=== PATIENT | male | born 1955 | race African-American/Black ===

== ENCOUNTER 2016-11-21 11:20 | Inpatient (IN) | payer OTHER ==
[2016-11-21 12:18] VITALS: BMI 21.7
--- NOTE | 2016-11-21 15:05 | HP ---
CIWA Score - CIWA Score Nausea/Vomitin Muscle Tremors: 3 Anxiety: 3 Agitation: 2 Paroxysmal Sweats: 2 Orientation: 0-Oriented Tacttile Disturbances: 2-Mild Itch/Numbness/Burn Auditory Disturbances: 2-Mild Harshness/Frighten Visual Disturbances: 2-Mild Sensitivity Headache: 2-Mild CIWA-Ar Total Score: 21 Admission ROS BHS - HPI Chief Complaint: I NEED HELP TO STOP USING XANAX AND KLONOPIN,MMTP Allergies/Adverse Reactions: Allergies Allergy/AdvReac Type Severity Reaction Status Date / Time No Known Allergies Allergy Verified 11/21/16 14:46 History of Present Illness: THIS 61 YEARS OLD MALE WITH XANAX AND KLONOPIN DEPENDENCE,WITHDRAWAL SYMPTOM, NVER BEEN IN DETOX BEFORE SEIZURE LAST 05/28 NICOTINE DEPENDENCE MMTP 85 MGS /DAY,LAST MEDICATED TODAY HEPATITIS C GERD POSITIVE PPD LONGEST SOBRIETY 9 YEARS Exam Limitations: No Limitations - Ebola screening Have you traveled outside of the country in the last 21 days: No Have you had contact with anyone from an Ebola affected area: No Have you been sick,other than usual withdrawal symptoms: No Do you have a fever: No - Review of Systems Constitutional: Loss of Appetite, Malaise, Night Sweats, Changes in sleep EENT: reports: Tearing, Nose Congestion Respiratory: reports: No Symptoms reported Cardiac: reports: No Symptoms Reported GI: reports: Nausea, Vomiting, Abdominal cramping : reports: No Symptoms Reported Musculoskeletal: reports: No Symptoms Reported Integumentary: reports: Dryness Neuro: reports: Tremors Endocrine: reports: No Symptoms Reported Hematology: reports: No Symptoms Reported Psychiatric: reports: No Sypmtoms Reported (INSOMNIA) Patient History - Patient Medical History Hx Asthma: No Hx Chronic Obstructive Pulmonary Disease (COPD): Yes (NO MED) Hx Cancer: No Hx Cardiac Disorders: No Hx Congestive Heart Failure: No Hx Hypertension: No Hx Seizures: Yes (seizure 5 months ago) Hx Diabetes: No Hx Gastrointestinal Disorders: Yes (GERD) Hx Genitourinary Disorders: No Hx Sexually Transmitted Disorders: No Hx Renal Disease (ESRD): No Hx Thyroid Disease: No Hx Human Immunodeficiency Virus (HIV): No (05/28 NEGATIVE) Hx Hepatitis C: Yes Hx Depression: Yes Hx Suicide Attempt: No Hx Bipolar Disorder: No Hx Schizophrenia: No - Patient Surgical History Past Surgical History: Yes Other Surgical History: Radiotherapy procedure on brain due to seizure 5 months ago. - PPD History Previous Implant?: Yes Documented Results: Positive w/o proof Implanted On Prior R Admission?: No PPD to be Administered?: No - Smoking Cessation Smoking history: Current every day smoker Have you smoked in the past 12 months: Yes Aproximately how many cigarettes per day: 3 Hx Chewing Tobacco Use: No Initiated information on smoking cessation: Yes 'Breaking Loose' booklet given: 11/21/16 - Substance & Tx. History Hx Alcohol Use: No Hx Substance Use: Yes Substance Use Type: Tranquilizers Hx Substance Use Treatment: No - Substances Abused xanax and klonopin Route: Oral Frequency: Daily Amount used: 6mg of each Age of first use: 60 Date of Last Use: 11/20/16 Family Disease History - Family Disease History Family History: Denies Admission Physical Exam S - Vital Signs Vital Signs: Vital Signs - 24 hr 11/21/16 12:15 Temperature 98.6 F Pulse Rate 63 Respiratory 20 Rate Blood Pressure 92/57 - Physical General Appearance: Yes: Moderate Distress, Tremorous, Irritable, Sweating, Anxious HEENTM: Yes: Nasal Congestion Respiratory: Yes: Lungs Clear Neck: Yes: Within Normal Limits Breast: Yes: Within Normal Limits Cardiology: Yes: Within Normal Limits, Regular Rhythm, Regular Rate, S1, S2 Abdominal: Yes: Within Normal Limits, Normal Bowel Sounds, Non Tender, Flat, Soft Genitourinary: Yes: Within Normal Limits Back: Yes: Muscle Spasm Musculoskeletal: Yes: Back pain, Muscle Pain Extremities: Yes: Tremors 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, Alert, Motor Strength 5/5, Normal Mood /Affect Integumentary: Yes: Dry Lymphatic: Yes: Within Normal Limits - Diagnostic (1) Uncomplicated sedative, hypnotic or anxiolytic withdrawal Current Visit: Yes Status: Acute (2) Methadone maintenance therapy patient Current Visit: Yes Status: Acute (3) Hepatitis C Current Visit: Yes Status: Acute (4) Seizure Current Visit: Yes Status: Acute (5) GERD (gastroesophageal reflux disease) Current Visit: Yes Status: Acute (6) Positive PPD, treated Current Visit: Yes Status: Acute (7) COPD (chronic obstructive pulmonary disease) Current Visit: Yes Status: Acute (8) Depression Current Visit: Yes Status: Acute Cleared for Admission BHS - Detox or Rehab BHS Level of Care: Medically Managed Detox Regimen/Protocol: Valium [facility] Breath Alcohol Content Breath Alcohol Content: 0 Urine Drug Screen - Results Drug Screen Negative: No Urine Drug Screen Results: BZO-Benzodiazepines, MTD-Methadone, TCA-Tricyclic Antidepress
[2016-11-21] MEDS ORDERED: MAGNESIUM CITRATE 300 ML BOTTLE PO PRN (15:17)
[2016-11-21] MEDS ORDERED: MENTHOL/PHENOL 1 EACH UD MM PRN (15:17)
[2016-11-21] MEDS ORDERED: LOPERAMIDE HCL 2 MG CAPSULE PO PRN (15:17)
[2016-11-21] MEDS ORDERED: hydrOXYzine PAMOATE 50 MG CAPSULE (FP) PO PRN (15:17)
[2016-11-21] MEDS ORDERED: guaiFENesin/D-METHORPHAN HB 10 ML UNIT-DOSE CUPS PO PRN (15:17)
[2016-11-21] MEDS ORDERED: P-EPHED 60MG/TRIPROLIDI 2.5MG TABLET PO PRN (15:17)
[2016-11-21] MEDS ORDERED: IBUPROFEN 400 MG TABLET (FP) PO PRN (15:17)
[2016-11-21] MEDS ORDERED: MAG HYDROX/AL HYDROX/SIMETH 30 ML UNIT-DOSE CUP PO PRN (15:17)
[2016-11-21] MEDS ORDERED: diazePAM 5 MG TABLET PO ONE (15:42)
[2016-11-21 20:53] LABS: PH,URINE 5.5 (5.0-8.0); URINE APPEARANCE CLEAR; URINE BILIRUBIN 1+ (NEGATIVE); URINE BLOOD NEGATIVE (NEGATIVE); URINE COLOR ORANGE; URINE GLUCOSE (UA) NEGATIVE (NEGATIVE); URINE KETONE TRACE (NEGATIVE); URINE LEUK ESTERASE NEGATIVE (NEGATIVE); URINE NITRITE NEGATIVE (NEGATIVE); URINE PROTEIN TRACE (NEGATIVE); URINE UROBILINOGEN 0.2 E.U/dl E.U./dl (0.2-1.0)
[2016-11-21] MEDS: diphenhydrAMINE HCL 50 MG CAPSULE PO PRN (22:20)
[2016-11-21] MEDS: diazePAM 5 MG TABLET PO SCH (22:20)
[2016-11-21] MEDS: THIAMINE HCL 100 MG TABLET (FP) PO SCH (22:20)
[2016-11-22] MEDS: diazePAM 5 MG TABLET PO SCH ×3 (05:47→22:02)
[2016-11-22] MEDS ORDERED: METHADONE HCL 10 MG TABLET PO ONE (09:02)
[2016-11-22] MEDS ORDERED: METHADONE 80 MG, METHADONE 5 MG PO ONE (09:13)
[2016-11-22 10:05] LABS: MCH 28.3 pg (25.7-33.7); MCHC 31.8 g/dl (32.0-35.9); MEAN CELL VOLUME 89.3 fl (80-96); MEAN PLT VOLUME 7.6 fl (7.5-11.1); PLATELET COUNT 178 K/MM3 (134-434); RDW 16.3 % (11.9-15.9); WHITE BLOOD COUNT 2.8 K/mm3 (4.0-10.0)
[2016-11-22] MEDS ORDERED: METHADONE HCL 5 MG TABLET ONE (10:33)
[2016-11-22] MEDS ORDERED: METHADONE HCL 40 MG DISPERSABLE TABLET ONE (10:33)
[2016-11-22] MEDS: diazePAM 5 MG TABLET PO PRN (10:34)
[2016-11-22] MEDS: PRENATAL VITAMINS W/ FOLIC ACID TABLET (FP) PO SCH (10:34)
[2016-11-22 10:43] LABS: ALBUMIN 4.3 g/dl (3.4-5.0); BILIRUBIN,TOTAL 0.3 mg/dL (0.2-1.0); CALCIUM 9.6 mg/dL (8.5-10.1); CREATININE 1.7 mg/dL (0.7-1.3); TOT PROT 8.9 g/dl (6.4-8.2)
--- NOTE | 2016-11-22 12:28 | CONSULT ---
[facility] Psychiatric Consult - Data Date of interview: 11/22/16 Admission source: [facility] Identifying data: First admission to [facility] for this 61 y/o AA male seeking detox treatment For benzodiazepine and opioid dependence.Patient is single,a father of two,domiciled,unemployed and supported on Public Assistance. Substance Abuse History: - Smoking Cessation. Smoking history: Current every day smoker. Have you smoked in the past 12 months: Yes. Aproximately how many cigarettes per day: 3. Hx Chewing Tobacco Use: No. Initiated information on smoking cessation: Yes. 'Breaking Loose' booklet given: 11/21/16. - Substance & Tx. History. Hx Alcohol Use: No. Hx Substance Use: Yes. Substance Use Type : Tranquilizers. Hx Substance Use Treatment: No. - Substances Abused. xanax and klonopin. Route: Oral. Frequency: Daily. Amount used: 6mg of each. Age of first use: 60. Date of Last Use: 11/20/16. Patient confirmed. Medical History: Remarkable for hepatitis C,GERD,history of +PPD and seizure disorder (radiotherapy on brain due to seizure 5 months ago).Patient reports that he is diagnosed with cancer of the stomach. Psychiatric History: Patient denies. Physical/Sexual Abuse/Trauma History: Patient denies. Additional Comment: Urine Drug Screen Results: BZO-Benzodiazepines, MTD- Methadone, TCA-Tricyclic Antidepressant.Noted. Mental Status Exam - Mental Status Exam Alert and Oriented to: Time, Place, Person Cognitive Function: Good Patient Appearance: Well Groomed (thin habitus) Mood: Nervous, Anxious, Hopeful Affect: Mood Congruent Patient Behavior: Fatigued, Talkative, Appropriate, Cooperative Speech Pattern: Clear, Appropriate Voice Loudness: Normal Thought Process: Goal Oriented Thought Disorder: Not Present Hallucinations: Denies Suicidal Ideation: Denies Homicidal Ideation: Denies Insight/Judgement: Poor Sleep: Poorly, Difficulty falling asleep Appetite: Poor, Weight loss Muscle strength/Tone: Normal Gait/Station: Normal Psychiatric Findings - Problem List ([place] 1, 2,3) (1) Uncomplicated sedative, hypnotic or anxiolytic withdrawal Current Visit: Yes Status: Acute (2) Opioid dependence on agonist therapy Current Visit: Yes Status: Acute (3) Nicotine dependence Current Visit: Yes Status: Acute (4) Adjustment disorder with mixed emotional features Current Visit: Yes Status: Chronic (5) COPD (chronic obstructive pulmonary disease) Current Visit: Yes Status: Chronic (6) GERD (gastroesophageal reflux disease) Current Visit: Yes Status: Chronic (7) Hepatitis C Current Visit: Yes Status: Chronic (8) Positive PPD, treated Current Visit: Yes Status: Chronic (9) Seizure Current Visit: Yes Status: Chronic - Initial Treatment Plan Initial Treatment Plan: Psychoeducation.Detoxification.Insomnia is addressed with benadryl 50 mg po hs prn.Side effects/benefits discussed with patient. Bryan agrees with careplan.Observation.
--- NOTE | 2016-11-22 13:26 | PN ---
S CIWA - CIWA Score Nausea/Vomitin Muscle Tremors: 3 Anxiety: 3 Agitation: 3 Paroxysmal Sweats: 3 Orientation: 0-Oriented Tacttile Disturbances: 1-Very Mild Itch/Numbness Auditory Disturbances: 0-None Visual Disturbances: 0-None Headache: 0-None Present CIWA-Ar Total Score: 16 [facility] Progress Note (SOAP) Subjective: interrupted sleep, sweats, nausea, constipation Objective: 11/22/16 13:24 Vital Signs Temperature 97.9 F 11/22/16 09:39 Pulse Rate 71 11/22/16 09:39 Respiratory Rate 18 11/22/16 09:39 Blood Pressure 128/83 11/22/16 09:39 O2 Sat by Pulse Oximetry (%) Laboratory Tests 11/21/16 11/22/16 11/22/16 21:00 06:00 06:00 WBC 2.8 L RBC 4.02 Hgb 11.4 L Hct 35.9 MCV 89.3 MCHC 31.8 L RDW 16.3 H Plt Count 178 MPV 7.6 Sodium 139 Potassium 4.7 Chloride 103 Carbon Dioxide 27 Anion Gap 9 BUN 20 H Creatinine 1.7 H Creat Clearance w eGFR 41.18 Random Glucose 111 H Calcium 9.6 Total Bilirubin 0.3 AST 24 ALT 27 Alkaline Phosphatase 99 Total Protein 8.9 H Albumin 4.3 Urine Color [place] Urine Appearance Clear Urine pH 5.5 Ur Specific [place] >= 1.030 Urine Protein Trace H Urine Glucose (UA) Negative Urine Ketones Trace H Urine Blood Negative Urine Nitrite Negative Urine Bilirubin 1+ H Urine Urobilinogen 0.2 e.u/dl Ur Leukocyte Esterase Negative RPR Titer 11/22/16 06:00 WBC RBC Hgb Hct MCV MCHC RDW Plt Count MPV Sodium Potassium Chloride Carbon Dioxide Anion Gap BUN Creatinine Creat Clearance w eGFR Random Glucose Calcium Total Bilirubin AST ALT Alkaline Phosphatase Total Protein Albumin Urine Color Urine Appearance Urine pH Ur Specific [place] Urine Protein Urine Glucose (UA) Urine Ketones Urine Blood Urine Nitrite Urine Bilirubin Urine Urobilinogen Ur Leukocyte Esterase RPR Titer Nonreactive pt aox 3 in nad ambulating Assessment: 11/22/16 13:25 withdrawl sx;s constipation decreased appetite Plan: cont. detox increase fluids mom ensure bid
[2016-11-22] MEDS: MAGNESIUM HYDROX 2400MG/30ML ORAL SUSPENSION 30 ML CUP PO PRN (14:18)
[2016-11-22] MEDS: diphenhydrAMINE HCL 50 MG CAPSULE PO PRN (22:02)
[2016-11-22] MEDS: THIAMINE HCL 100 MG TABLET (FP) PO SCH (22:02)
[2016-11-23] MEDS ORDERED: METHADONE HCL 5 MG TABLET ONE (05:03)
[2016-11-23] MEDS ORDERED: METHADONE HCL 40 MG DISPERSABLE TABLET ONE (05:03)
[2016-11-23] MEDS: METHADONE 80 MG, METHADONE 5 MG PO SCH (05:24)
[2016-11-23] MEDS: diazePAM 5 MG TABLET PO PRN (05:24)
[2016-11-23] MEDS ORDERED: METHADONE HCL 40 MG DISPERSABLE TABLET PO SCH (06:00)
--- NOTE | 2016-11-23 10:19 | EKG ---
Test Reason : Blood Pressure : / mmHG Vent. Rate : 053 BPM Atrial Rate : 053 BPM P-R Int : 168 ms QRS Dur : 086 ms QT Int : 470 ms P-R-T Axes : 034 076 071 degrees QTc Int : 441 ms SINUS BRADYCARDIA MODERATE VOLTAGE CRITERIA FOR LVH, MAY BE NORMAL VARIANT BORDERLINE ECG NO PREVIOUS ECGS AVAILABLE Confirmed by HERVE PROCTOR MD ([id number]) on 11/23/2016 10:18:46 AM Referred By: Josias Decker Confirmed By:HERVE PROCTOR MD
[2016-11-23] MEDS: PRENATAL VITAMINS W/ FOLIC ACID TABLET (FP) PO SCH (10:36)
[2016-11-23] MEDS: diazePAM 5 MG TABLET PO SCH ×2 (10:36→22:09)
--- NOTE | 2016-11-23 10:57 | PN ---
S CIWA - CIWA Score Nausea/Vomitin Muscle Tremors: 2 Anxiety: 2 Agitation: 2 Paroxysmal Sweats: 3 Orientation: 0-Oriented Tacttile Disturbances: 1-Very Mild Itch/Numbness Auditory Disturbances: 0-None Visual Disturbances: 0-None Headache: 0-None Present CIWA-Ar Total Score: 12 S Progress Note (SOAP) Subjective: interrupted sleep, sweats ,constipated Objective: 11/23/16 10:51 Vital Signs Temperature 98.2 F 11/23/16 10:18 Pulse Rate 68 11/23/16 10:18 Respiratory Rate 20 11/23/16 10:18 Blood Pressure 104/65 11/23/16 10:18 O2 Sat by Pulse Oximetry (%) Laboratory Tests 11/21/16 11/22/16 11/22/16 21:00 06:00 06:00 WBC 2.8 L RBC 4.02 Hgb 11.4 L Hct 35.9 MCV 89.3 MCHC 31.8 L RDW 16.3 H Plt Count 178 MPV 7.6 Sodium 139 Potassium 4.7 Chloride 103 Carbon Dioxide 27 Anion Gap 9 BUN 20 H Creatinine 1.7 H Creat Clearance w eGFR 41.18 Random Glucose 111 H Calcium 9.6 Total Bilirubin 0.3 AST 24 ALT 27 Alkaline Phosphatase 99 Total Protein 8.9 H Albumin 4.3 Urine Color [place] Urine Appearance Clear Urine pH 5.5 Ur Specific [place] >= 1.030 Urine Protein Trace H Urine Glucose (UA) Negative Urine Ketones Trace H Urine Blood Negative Urine Nitrite Negative Urine Bilirubin 1+ H Urine Urobilinogen 0.2 e.u/dl Ur Leukocyte Esterase Negative RPR Titer 11/22/16 06:00 WBC RBC Hgb Hct MCV MCHC RDW Plt Count MPV Sodium Potassium Chloride Carbon Dioxide Anion Gap BUN Creatinine Creat Clearance w eGFR Random Glucose Calcium Total Bilirubin AST ALT Alkaline Phosphatase Total Protein Albumin Urine Color Urine Appearance Urine pH Ur Specific [place] Urine Protein Urine Glucose (UA) Urine Ketones Urine Blood Urine Nitrite Urine Bilirubin Urine Urobilinogen Ur Leukocyte Esterase RPR Titer Nonreactive pt aox3 in nad ambulating 11/23/16 10:52 cxr - rt port in place, hyperinflation no acutr pathology Assessment: 11/23/16 10:52 withdrawl sx's Plan: cont. detox increase fluids
[2016-11-23] MEDS: ACETAMINOPHEN 325 MG TABLET (FP) PO PRN ×2 (13:53→20:55)
[2016-11-23] MEDS: THIAMINE HCL 100 MG TABLET (FP) PO SCH (22:09)
[2016-11-23] MEDS: diphenhydrAMINE HCL 50 MG CAPSULE PO PRN (22:10)
[2016-11-24] MEDS ORDERED: METHADONE HCL 40 MG DISPERSABLE TABLET ONE (05:12)
[2016-11-24] MEDS ORDERED: METHADONE HCL 5 MG TABLET ONE (05:13)
[2016-11-24] MEDS: METHADONE 80 MG, METHADONE 5 MG PO SCH (05:30)
[2016-11-24] MEDS: MAGNESIUM HYDROX 2400MG/30ML ORAL SUSPENSION 30 ML CUP PO PRN (10:28)
[2016-11-24] MEDS: PRENATAL VITAMINS W/ FOLIC ACID TABLET (FP) PO SCH (10:28)
[2016-11-24] MEDS: diazePAM 5 MG TABLET PO SCH ×2 (10:28→22:13)
--- NOTE | 2016-11-24 10:47 | PN ---
BHS Progress Note (SOAP) Subjective: sweats nausea constipation Objective: 11/24/16 10:47 Vital Signs Temperature 99 F 11/24/16 10:33 Pulse Rate 78 11/24/16 10:33 Respiratory Rate 16 11/24/16 10:33 Blood Pressure 112/71 11/24/16 10:33 O2 Sat by Pulse Oximetry (%) awake/alert ambulating no acute distress Assessment: 11/24/16 10:48 withdrawal sx Plan: continue detox increase fluids citroma prn d/c in am
[2016-11-24] MEDS ORDERED: PANTOPRAZOLE 40 MG TABLET (FP) PO ONE (14:55)
[2016-11-24] MEDS: THIAMINE HCL 100 MG TABLET (FP) PO SCH (22:13)
[2016-11-24] MEDS: diphenhydrAMINE HCL 50 MG CAPSULE PO PRN (22:14)
[2016-11-25] MEDS ORDERED: METHADONE HCL 40 MG DISPERSABLE TABLET ONE (04:49)
[2016-11-25] MEDS ORDERED: METHADONE HCL 5 MG TABLET ONE (04:50)
[2016-11-25] MEDS: METHADONE 80 MG, METHADONE 5 MG PO SCH (05:46)
--- NOTE | 2016-11-25 08:40 | DS ---
[facility] Detox Discharge Summary Admission Date: 11/21/16 Discharge Date: 11/25/16 - History Present History: Opioid Dependence Pertinent Past History: see below - Physical Exam Results Vital Signs: Vital Signs Temperature 97.1 F L 11/25/16 06:26 Pulse Rate 70 11/25/16 06:26 Respiratory Rate 18 11/25/16 06:26 Blood Pressure 105/81 11/25/16 06:26 O2 Sat by Pulse Oximetry (%) Pertinent Admission Physical Exam Findings: admitted in acute withdrawal medically stable on dc detox completed dc today Laboratory Tests 11/21/16 11/22/16 11/22/16 21:00 06:00 06:00 WBC 2.8 L RBC 4.02 Hgb 11.4 L Hct 35.9 MCV 89.3 MCHC 31.8 L RDW 16.3 H Plt Count 178 MPV 7.6 Sodium 139 Potassium 4.7 Chloride 103 Carbon Dioxide 27 Anion Gap 9 BUN 20 H Creatinine 1.7 H Creat Clearance w eGFR 41.18 Random Glucose 111 H Calcium 9.6 Total Bilirubin 0.3 AST 24 ALT 27 Alkaline Phosphatase 99 Total Protein 8.9 H Albumin 4.3 Urine Color [place] Urine Appearance Clear Urine pH 5.5 Ur Specific [place] >= 1.030 Urine Protein Trace H Urine Glucose (UA) Negative Urine Ketones Trace H Urine Blood Negative Urine Nitrite Negative Urine Bilirubin 1+ H Urine Urobilinogen 0.2 e.u/dl Ur Leukocyte Esterase Negative RPR Titer 11/22/16 06:00 WBC RBC Hgb Hct MCV MCHC RDW Plt Count MPV Sodium Potassium Chloride Carbon Dioxide Anion Gap BUN Creatinine Creat Clearance w eGFR Random Glucose Calcium Total Bilirubin AST ALT Alkaline Phosphatase Total Protein Albumin Urine Color Urine Appearance Urine pH Ur Specific [place] Urine Protein Urine Glucose (UA) Urine Ketones Urine Blood Urine Nitrite Urine Bilirubin Urine Urobilinogen Ur Leukocyte Esterase RPR Titer Nonreactive Vital Signs - 24 hr 11/24/16 11/24/16 11/24/16 10:33 14:10 17:52 Temperature 99 F 97.7 F 99.5 F Pulse Rate 78 77 62 Respiratory 16 16 16 Rate Blood Pressure 112/71 96/59 103/59 11/24/16 11/25/16 11/25/16 22:36 00:30 03:30 Temperature 98.1 F Pulse Rate 77 Respiratory 18 18 18 Rate Blood Pressure 115/65 11/25/16 06:26 Temperature 97.1 F L Pulse Rate 70 Respiratory 18 Rate Blood Pressure 105/81 - Treatment Hospital Course: Detox Protocol Followed, Detoxed Safely, Responded well, Discharged Condition Good, Rehab Referral Accepted - Medication Discharge Medications: Ambulatory Orders Omeprazole Magnesium [Prilosec] 20 mg PO DAILY 11/21/16 - Diagnosis (1) Depression Current Visit: Yes Status: Acute (2) Methadone maintenance therapy patient Current Visit: Yes Status: Acute (3) Nicotine dependence Current Visit: Yes Status: Acute (4) Opioid dependence on agonist therapy Current Visit: Yes Status: Acute (5) Uncomplicated sedative, hypnotic or anxiolytic withdrawal Current Visit: Yes Status: Acute (6) Adjustment disorder with mixed emotional features Current Visit: Yes Status: Chronic (7) COPD (chronic obstructive pulmonary disease) Current Visit: Yes Status: Chronic (8) GERD (gastroesophageal reflux disease) Current Visit: Yes Status: Chronic (9) Hepatitis C Current Visit: Yes Status: Chronic (10) Positive PPD, treated Current Visit: Yes Status: Chronic (11) Seizure Current Visit: Yes Status: Chronic - AMA Did Patient Leave Against Medical Advice: No
[2016-11-25] MEDS ORDERED: diazePAM 5 MG TABLET PO SCH (10:00)
[2016-11-25 10:08] VITALS: BP 96/58; PULSE 81; TEMP 98.1
[2016-11-25] MEDS: PRENATAL VITAMINS W/ FOLIC ACID TABLET (FP) PO SCH (10:40)
== END 2016-11-25 11:36 | disposition home or self-care (01) | DRG 773 ==
LOC: YASAS 11:20 → Y6N 15:25
PROVIDERS: ADMIT Internal Medicine Addiction Medicine; ATTEND Internal Medicine Addiction Medicine
PROC: HZ2ZZZZ Detoxification Services for Substance Abuse Treatment (ICD-10-PCS; principal; 2016-11-21)
DX: F13.230 Sedative, hypnotic or anxiolytic dependence with withdrawal, uncomplicated (principal); F11.20 Opioid dependence, uncomplicated; F17.210 Nicotine dependence, cigarettes, uncomplicated; F32.9 Major depressive disorder, single episode, unspecified; F43.29 Adjustment disorder with other symptoms; J44.9 Chronic obstructive pulmonary disease, unspecified; K21.9 Gastro-esophageal reflux disease without esophagitis; B18.2 Chronic viral hepatitis C; R76.11 Nonspecific reaction to tuberculin skin test without active tuberculosis; G40.909 Epilepsy, unspecified, not intractable, without status epilepticus; K59.00 Constipation, unspecified; R63.0 Anorexia; Z85.028 Personal history of other malignant neoplasm of stomach; Z68.21 Body mass index [BMI] 21.0-21.9, adult
CPT/HCPCS: 36415; 71020-TC; 80053; 81003; 85027; 86593; 93005; 93010

== ENCOUNTER 2017-04-11 11:17 | Inpatient (IN) | payer OTHER ==
[2017-04-11 13:21] VITALS: BMI 22.4
--- NOTE | 2017-04-11 14:11 | HP ---
CIWA Score - CIWA Score Nausea/Vomitin-No Nausea/No Vomiting Muscle Tremors: 4-Moderate,w/Arms Extend Anxiety: 3 Agitation: 4-Moderately Restless Paroxysmal Sweats: 3 Orientation: 0-Oriented Tacttile Disturbances: 0-None Auditory Disturbances: 0-None Visual Disturbances: 0-None Headache: 0-None Present CIWA-Ar Total Score: 14 Admission ROS BHS - HPI Chief Complaint: I need to stop taking these pills. Allergies/Adverse Reactions: Allergies Allergy/AdvReac Type Severity Reaction Status Date / Time No Known Allergies Allergy Verified 04/11/17 13:36 History of Present Illness: Pt is a 61yr old male with a history of xanax dependence seeking detox for treatment. pt is on a mmtp program received 85mg today pending verification. Exam Limitations: No Limitations - Ebola screening Have you traveled outside of the country in the last 21 days: No Have you had contact with anyone from an Ebola affected area: No Have you been sick,other than usual withdrawal symptoms: No Do you have a fever: No - Review of Systems Constitutional: Changes in sleep EENT: reports: No Symptoms Reported Respiratory: reports: No Symptoms reported Cardiac: reports: No Symptoms Reported GI: reports: No Symptoms Reported : reports: No Symptoms Reported Musculoskeletal: reports: No Symptoms Reported Integumentary: reports: No Symptoms Reported Neuro: reports: No Symptoms reported Endocrine: reports: No Symptoms Reported Hematology: reports: No Symptoms Reported, Swollen Glands Psychiatric: reports: Mood/Affect Appropiate, Orientated x3, Agitated, Anxious Other Systems: Reviewed and Negative Patient History - Patient Medical History Hx Anemia: No Hx Asthma: No Hx Chronic Obstructive Pulmonary Disease (COPD): No Hx Cancer: No Hx Cardiac Disorders: No Hx Congestive Heart Failure: No Hx Hypertension: No Hx Hypercholesterolemia: No Hx Pacemaker: No HX Cerebrovascular Accident: No Hx Seizures: Yes (h/o a seizure 06/2016) Hx Diabetes: No Hx Gastrointestinal Disorders: Yes (acid reflux) Hx Genitourinary Disorders: No Hx Sexually Transmitted Disorders: No Hx Renal Disease (ESRD): No Hx Thyroid Disease: No Hx Human Immunodeficiency Virus (HIV): No (05/28 NEGATIVE) Hx Hepatitis C: Yes Hx Depression: No Hx Suicide Attempt: No (denies) Hx Bipolar Disorder: No Hx Schizophrenia: No - Patient Surgical History Past Surgical History: No Hx Neurologic Surgery: No Hx Cataract Extraction: No Hx Cardiac Surgery: No Hx Lung Surgery: No Hx Breast Surgery: No Hx Breast Biopsy: No Hx Abdominal Surgery: No Hx Appendectomy: No Hx Cholecystectomy: No Hx Genitourinary Surgery: No Hx Section: No Hx Orthopedic Surgery: No Other Surgical History: Radiotherapy procedure on brain due to seizure 5 months ago. Anesthesia Reaction: No - PPD History Previous Implant?: Yes Documented Results: Positive w/proof Implanted On Prior R Admission?: No PPD to be Administered?: No - Reproductive History Patient is a Female of Child Bearing Age (11 -55 yrs old): No - Smoking Cessation Smoking history: Former smoker Have you smoked in the past 12 months: Yes Aproximately how many cigarettes per day: 3 Hx Chewing Tobacco Use: No Initiated information on smoking cessation: Yes 'Breaking Loose' booklet given: 04/11/17 - Substance & Tx. History Hx Alcohol Use: No Hx Substance Use: Yes Substance Use Type: Tranquilizers - Substances Abused Klonopin or Xanax Route: Oral Frequency: Daily Amount used: 4 mg./2 mg. Age of first use: 60 Date of Last Use: 04/10/17 Family Disease History - Family Disease History Family History: Denies Admission Physical Exam BHS - Vital Signs Vital Signs: Vital Signs - 24 hr 04/11/17 13:17 Temperature 97 F L Pulse Rate 59 L Respiratory 20 Rate Blood Pressure 103/66 - Physical General Appearance: Yes: Appropriately Dressed, Moderate Distress, Thin, Sweating, Anxious HEENTM: Yes: Hearing grossly Normal, Normal Voice Respiratory: Yes: Lungs Clear, Normal Breath Sounds, No Respiratory Distress Neck: Yes: No masses,lesions,Nodules Breast: Yes: Within Normal Limits Cardiology: Yes: Regular Rhythm, Regular Rate, S1, S2 Abdominal: Yes: Normal Bowel Sounds Genitourinary: Yes: Within Normal Limits Back: Yes: Normal Inspection Musculoskeletal: Yes: full range of Motion Extremities: Yes: Normal Capillary Refill, Normal Inspection Neurological: Yes: Fully Oriented, Alert, Normal Response Integumentary: Yes: Normal Color Lymphatic: Yes: Within Normal Limits - Diagnostic (1) Methadone maintenance therapy patient Current Visit: No Status: Acute (2) Uncomplicated sedative, hypnotic or anxiolytic withdrawal Current Visit: Yes Status: Chronic (3) COPD (chronic obstructive pulmonary disease) Current Visit: Yes Status: Chronic Qualifiers: COPD type: chronic bronchitis Chronic bronchitis type: unspecified Qualified Code(s): J42 - Unspecified chronic bronchitis (4) GERD (gastroesophageal reflux disease) Current Visit: Yes Status: Chronic Qualifiers: Esophagitis presence: without esophagitis Qualified Code(s): K21.9 - Gastro-esophageal reflux disease without esophagitis (5) Hepatitis C Current Visit: Yes Status: Chronic Qualifiers: Viral hepatitis chronicity: chronic Hepatic coma status: without hepatic coma Qualified Code(s): B18.2 - Chronic viral hepatitis C (6) Positive PPD, treated Current Visit: No Status: Chronic Cleared for Admission BHS - Detox or Rehab [facility] Level of Care: Medically Managed Detox Regimen/Protocol: Valium S Breath Alcohol Content Breath Alcohol Content: 0 Urine Drug Screen - Results Drug Screen Negative: No Urine Drug Screen Results: BZO-Benzodiazepines, MTD-Methadone, TCA-Tricyclic Antidepress
[2017-04-11] MEDS ORDERED: MAGNESIUM HYDROX 2400MG/30ML ORAL SUSPENSION 30 ML CUP PO PRN (14:20)
[2017-04-11] MEDS ORDERED: P-EPHED 60MG/TRIPROLIDI 2.5MG TABLET PO PRN (14:20)
[2017-04-11] MEDS ORDERED: guaiFENesin/D-METHORPHAN HB 10 ML UNIT-DOSE CUPS PO PRN (14:20)
[2017-04-11] MEDS ORDERED: ACETAMINOPHEN 325 MG TABLET (FP) PO PRN (14:20)
[2017-04-11] MEDS ORDERED: MENTHOL/PHENOL 1 EACH UD MM PRN (14:20)
[2017-04-11] MEDS ORDERED: diazePAM 5 MG TABLET PO ONE (14:20)
[2017-04-11] MEDS ORDERED: MAGNESIUM CITRATE 300 ML BOTTLE PO PRN (14:20)
[2017-04-11] MEDS ORDERED: hydrOXYzine PAMOATE 50 MG CAPSULE (FP) PO PRN (14:20)
[2017-04-11] MEDS ORDERED: LOPERAMIDE HCL 2 MG CAPSULE PO PRN (14:20)
[2017-04-11] MEDS ORDERED: IBUPROFEN 400 MG TABLET (FP) PO PRN (14:20)
[2017-04-11] MEDS: diazePAM 5 MG TABLET PO SCH (22:11)
[2017-04-11] MEDS: PANTOPRAZOLE 20 MG TABLET (FP) PO SCH (22:11)
[2017-04-11] MEDS: THIAMINE HCL 100 MG TABLET (FP) PO SCH (22:11)
[2017-04-11] MEDS: diphenhydrAMINE HCL 50 MG CAPSULE PO PRN (22:11)
[2017-04-11 23:09] LABS: URINE APPEARANCE SLCLOUDY; URINE BILIRUBIN NEGATIVE (NEGATIVE); URINE BLOOD NEGATIVE (NEGATIVE); URINE COLOR AMBER; URINE GLUCOSE (UA) NEGATIVE (NEGATIVE); URINE KETONE NEGATIVE (NEGATIVE); URINE LEUK ESTERASE NEGATIVE (NEGATIVE); URINE NITRITE NEGATIVE (NEGATIVE); URINE PROTEIN NEGATIVE (NEGATIVE); URINE UROBILINOGEN NEGATIVE E.U./dl (0.2-1.0)
[2017-04-12] MEDS: diazePAM 5 MG TABLET PO SCH ×3 (05:42→22:11)
[2017-04-12] MEDS ORDERED: METHADONE HCL 40 MG DISPERSABLE TABLET PO SCH (07:30)
[2017-04-12] MEDS ORDERED: METHADONE HCL 40 MG DISPERSABLE TABLET ONE (07:40)
[2017-04-12] MEDS ORDERED: METHADONE HCL 5 MG TABLET ONE (07:40)
[2017-04-12] MEDS: METHADONE 80 MG, METHADONE 5 MG PO SCH (07:42)
[2017-04-12] MEDS: diazePAM 5 MG TABLET PO PRN ×2 (08:48→18:43)
[2017-04-12 10:10] LABS: MCH 28.8 pg (25.7-33.7); MCHC 32.4 g/dl (32.0-35.9); MEAN CELL VOLUME 88.9 fl (80-96); MEAN PLT VOLUME 7.6 fl (7.5-11.1); PLATELET COUNT 139 K/MM3 (134-434); RDW 16.2 % (11.9-15.9); WHITE BLOOD COUNT 2.8 K/mm3 (4.0-10.0)
[2017-04-12] MEDS: PRENATAL VITAMINS W/ FOLIC ACID TABLET (FP) PO SCH (10:19)
[2017-04-12] MEDS: PANTOPRAZOLE 20 MG TABLET (FP) PO SCH ×2 (10:19→22:11)
[2017-04-12 10:34] LABS: ALBUMIN 4.2 g/dl (3.4-5.0); ALK PHOS 87 U/L (45-117); ANION GAP 7 (8-16); BILIRUBIN,TOTAL 0.5 mg/dL (0.2-1.0); CALCIUM 9.1 mg/dL (8.5-10.1); CO2 32 mmol/L (21-32); COCKROFT - GAULT 64.6; CREATININE 1.2 mg/dL (0.7-1.3); GLUCOSE,RANDOM 92 mg/dL (74-106); SGOT/AST 33 U/L (15-37); SGPT/ALT 32 U/L (12-78); TOT PROT 8.4 g/dl (6.4-8.2)
--- NOTE | 2017-04-12 11:49 | CONSULT ---
[facility] Psychiatric Consult - Data Date of interview: 04/12/17 Admission source: [facility] Identifying data: Readmission to [facility] for this 61 y/o AA male seeking detox treatment for benzodiazepine and opioid dependence.Patient is ,a father of two,domiciled,unemployed and supported on Public Assistance. Substance Abuse History: - Smoking Cessation. Smoking history: Former smoker. Have you smoked in the past 12 months: Yes. Aproximately how many cigarettes per day: 3. Hx Chewing Tobacco Use: No. Initiated information on smoking cessation: Yes. 'Breaking Loose' booklet given: 04/11/17. - Substance & Tx. History. Hx Alcohol Use: No. Hx Substance Use: Yes. Substance Use Type: Tranquilizers. - Substances Abused. Klonopin or Xanax. Route: Oral. Frequency: Daily. Amount used: 4 mg./2 mg. Age of first use: 60. Date of Last Use: 04/10/17. Confirmed by patient. Medical History: Hepatitis C,GERD,history of + PPD and seizure disorder (recent radiotherapy on brain due to seizure).Patient reports that he is diagnosed with cancer of the stomach.No known allergies. Psychiatric History: Patient denies psychiatric hospitalizations.He is curently on methadone maintenance (85 mg/day). Physical/Sexual Abuse/Trauma History: Patient denies. Additional Comment: Urine Drug Screen Results: BZO-Benzodiazepines, MTD- Methadone, TCA-Tricyclic Antidepressant.Noted. Mental Status Exam - Mental Status Exam Alert and Oriented to: Time, Place, Person Cognitive Function: Good Patient Appearance: Well Groomed Mood: Hopeful, Euthymic Affect: Appropriate, Normal Range Patient Behavior: Fatigued, Cooperative Speech Pattern: Clear Voice Loudness: Normal Thought Process: Goal Oriented Thought Disorder: Not Present Hallucinations: Denies Suicidal Ideation: Denies Homicidal Ideation: Denies Insight/Judgement: Poor Sleep: Poorly, Difficulty falling asleep Appetite: Fair Muscle strength/Tone: Normal Gait/Station: Normal Psychiatric Findings - Problem List ([place] 1, 2,3) (1) Uncomplicated sedative, hypnotic or anxiolytic withdrawal Current Visit: Yes Status: Acute (2) Opioid dependence on agonist therapy Current Visit: Yes Status: Acute (3) Nicotine dependence Current Visit: Yes Status: Acute (4) COPD (chronic obstructive pulmonary disease) Current Visit: Yes Status: Chronic Qualifiers: COPD type: chronic bronchitis Chronic bronchitis type: unspecified Qualified Code(s): J42 - Unspecified chronic bronchitis (5) GERD (gastroesophageal reflux disease) Current Visit: Yes Status: Chronic Qualifiers: Esophagitis presence: without esophagitis Qualified Code(s): K21.9 - Gastro-esophageal reflux disease without esophagitis (6) Hepatitis C Current Visit: Yes Status: Chronic Qualifiers: Viral hepatitis chronicity: chronic Hepatic coma status: without hepatic coma Qualified Code(s): B18.2 - Chronic viral hepatitis C (7) Positive PPD, treated Current Visit: No Status: Chronic (8) Seizure Current Visit: No Status: Chronic (9) Insomnia Current Visit: Yes Status: Acute - Initial Treatment Plan Initial Treatment Plan: Psychoeducation.Detoxification in progress.Insomnia is addressed with benadryl 50 mg/hs.Patient made aware of side effects/benefits.He agrees with careplan.Observation.
--- NOTE | 2017-04-12 11:59 | EKG ---
Test Reason : Blood Pressure : / mmHG Vent. Rate : 050 BPM Atrial Rate : 050 BPM P-R Int : 172 ms QRS Dur : 090 ms QT Int : 464 ms P-R-T Axes : 073 070 070 degrees QTc Int : 423 ms SINUS BRADYCARDIA POSSIBLE LEFT ATRIAL ENLARGEMENT BORDERLINE ECG WHEN COMPARED WITH ECG OF 21-NOV-2016 17:42, NO SIGNIFICANT CHANGE WAS FOUND Confirmed by HITESH BAUER, HERVE ([id number]) on 04/12/2017 11:58:38 AM Referred By: Confirmed By:HERVE PROCTOR MD
--- NOTE | 2017-04-12 14:29 | PN ---
S CIWA - CIWA Score Nausea/Vomitin-No Nausea/No Vomiting Muscle Tremors: 4-Moderate,w/Arms Extend Anxiety: 4-Mod. Anxious/Guarded Agitation: 3 Paroxysmal Sweats: 3 Orientation: 0-Oriented Tacttile Disturbances: 0-None Auditory Disturbances: 0-None Visual Disturbances: 0-None Headache: 0-None Present CIWA-Ar Total Score: 14 BHS Progress Note (SOAP) Subjective: Sweating,anxiety,tremors,sweating,interrupted sleep,restless Objective: 04/12/17 14:27 Vital Signs - 8 hr 04/12/17 04/12/17 04/12/17 06:33 09:25 13:20 Temperature 99.2 F 99.3 F 98.6 F Pulse Rate 64 64 70 Respiratory 18 18 18 Rate Blood Pressure 114/76 97/73 95/61 Laboratory Tests 04/11/17 04/12/17 04/12/17 21:59 06:00 06:00 WBC 2.8 L RBC 3.82 L Hgb 11.0 L Hct 33.9 L MCV 88.9 MCHC 32.4 RDW 16.2 H Plt Count 139 D MPV 7.6 Sodium 138 Potassium 4.0 Chloride 99 Carbon Dioxide 32 Anion Gap 7 L BUN 16 Creatinine 1.2 D Creat Clearance w eGFR > 60 Random Glucose 92 Calcium 9.1 Total Bilirubin 0.5 D AST 33 D ALT 32 Alkaline Phosphatase 87 Total Protein 8.4 H Albumin 4.2 Urine Color Jeanne Urine Appearance Slcloudy Urine pH 5.0 Ur Specific [place] 1.025 Urine Protein Negative Urine Glucose (UA) Negative Urine Ketones Negative Urine Blood Negative Urine Nitrite Negative Urine Bilirubin Negative Urine Urobilinogen Negative Ur Leukocyte Esterase Negative RPR Titer 04/12/17 06:00 WBC RBC Hgb Hct MCV MCHC RDW Plt Count MPV Sodium Potassium Chloride Carbon Dioxide Anion Gap BUN Creatinine Creat Clearance w eGFR Random Glucose Calcium Total Bilirubin AST ALT Alkaline Phosphatase Total Protein Albumin Urine Color Urine Appearance Urine pH Ur Specific [place] Urine Protein Urine Glucose (UA) Urine Ketones Urine Blood Urine Nitrite Urine Bilirubin Urine Urobilinogen Ur Leukocyte Esterase RPR Titer Nonreactive labs noted Assessment: 04/12/17 14:28 Withdrawal sx. Plan: Continue detox
[2017-04-12] MEDS: THIAMINE HCL 100 MG TABLET (FP) PO SCH (22:11)
[2017-04-12] MEDS: diphenhydrAMINE HCL 50 MG CAPSULE PO PRN (22:11)
[2017-04-13] MEDS ORDERED: METHADONE HCL 5 MG TABLET ONE (04:41)
[2017-04-13] MEDS ORDERED: METHADONE HCL 40 MG DISPERSABLE TABLET ONE (04:41)
[2017-04-13] MEDS: METHADONE 80 MG, METHADONE 5 MG PO SCH (05:26)
[2017-04-13] MEDS: diazePAM 5 MG TABLET PO PRN ×2 (05:28→17:43)
[2017-04-13] MEDS: MAG HYDROX/AL HYDROX/SIMETH 30 ML UNIT-DOSE CUP PO PRN (08:30)
[2017-04-13] MEDS: PRENATAL VITAMINS W/ FOLIC ACID TABLET (FP) PO SCH (10:02)
[2017-04-13] MEDS: diazePAM 5 MG TABLET PO SCH ×2 (10:02→22:05)
[2017-04-13] MEDS: PANTOPRAZOLE 20 MG TABLET (FP) PO SCH ×2 (10:02→22:05)
--- NOTE | 2017-04-13 10:36 | PN ---
S CIWA - CIWA Score Nausea/Vomitin-No Nausea/No Vomiting Muscle Tremors: 4-Moderate,w/Arms Extend Anxiety: 3 Agitation: 3 Paroxysmal Sweats: 3 Orientation: 0-Oriented Tacttile Disturbances: 0-None Auditory Disturbances: 0-None Visual Disturbances: 0-None Headache: 0-None Present CIWA-Ar Total Score: 13 S Progress Note (SOAP) Subjective: Anxiety,tremors,sweating,interrupted sleep,restless Objective: 04/13/17 10:35 Vital Signs - 24 hr 04/12/17 04/12/17 04/12/17 13:20 17:23 21:55 Temperature 98.6 F 98.8 F 98.1 F Pulse Rate 70 65 62 Respiratory 18 18 19 Rate Blood Pressure 95/61 97/62 100/68 04/13/17 04/13/17 04/13/17 00:30 03:53 06:24 Temperature 98.6 F Pulse Rate 60 Respiratory 18 18 18 Rate Blood Pressure 117/76 04/13/17 09:13 Temperature 98.6 F Pulse Rate 64 Respiratory 18 Rate Blood Pressure 121/87 Laboratory Tests 04/11/17 04/12/17 04/12/17 21:59 06:00 06:00 WBC 2.8 L RBC 3.82 L Hgb 11.0 L Hct 33.9 L MCV 88.9 MCHC 32.4 RDW 16.2 H Plt Count 139 D MPV 7.6 Sodium 138 Potassium 4.0 Chloride 99 Carbon Dioxide 32 Anion Gap 7 L BUN 16 Creatinine 1.2 D Creat Clearance w eGFR > 60 Random Glucose 92 Calcium 9.1 Total Bilirubin 0.5 D AST 33 D ALT 32 Alkaline Phosphatase 87 Total Protein 8.4 H Albumin 4.2 Urine Color Jeanne Urine Appearance Slcloudy Urine pH 5.0 Ur Specific [place] 1.025 Urine Protein Negative Urine Glucose (UA) Negative Urine Ketones Negative Urine Blood Negative Urine Nitrite Negative Urine Bilirubin Negative Urine Urobilinogen Negative Ur Leukocyte Esterase Negative RPR Titer 04/12/17 06:00 WBC RBC Hgb Hct MCV MCHC RDW Plt Count MPV Sodium Potassium Chloride Carbon Dioxide Anion Gap BUN Creatinine Creat Clearance w eGFR Random Glucose Calcium Total Bilirubin AST ALT Alkaline Phosphatase Total Protein Albumin Urine Color Urine Appearance Urine pH Ur Specific [place] Urine Protein Urine Glucose (UA) Urine Ketones Urine Blood Urine Nitrite Urine Bilirubin Urine Urobilinogen Ur Leukocyte Esterase RPR Titer Nonreactive labs noted Assessment: 04/13/17 10:35 Withdrawal sx. Plan: Continue detox
[2017-04-13] MEDS: THIAMINE HCL 100 MG TABLET (FP) PO SCH (22:05)
[2017-04-13] MEDS: diphenhydrAMINE HCL 50 MG CAPSULE PO PRN (22:06)
[2017-04-14] MEDS ORDERED: METHADONE HCL 40 MG DISPERSABLE TABLET ONE (03:44)
[2017-04-14] MEDS ORDERED: METHADONE HCL 5 MG TABLET ONE (03:44)
[2017-04-14] MEDS: METHADONE 80 MG, METHADONE 5 MG PO SCH (05:28)
[2017-04-14] MEDS: diazePAM 5 MG TABLET PO PRN (05:30)
[2017-04-14] MEDS: diazePAM 5 MG TABLET PO SCH ×2 (10:03→22:21)
[2017-04-14] MEDS: PRENATAL VITAMINS W/ FOLIC ACID TABLET (FP) PO SCH (10:03)
[2017-04-14] MEDS: PANTOPRAZOLE 20 MG TABLET (FP) PO SCH ×2 (10:03→22:21)
[2017-04-14] MEDS: MAG HYDROX/AL HYDROX/SIMETH 30 ML UNIT-DOSE CUP PO PRN ×2 (11:47→17:29)
--- NOTE | 2017-04-14 12:00 | PN ---
BHS Progress Note (SOAP) Subjective: Interrupted sleep, Constipation, Tremors. Objective: PT. A & O X 3, NO ACUTE DISTRESS. 04/14/17 11:58 Laboratory Tests 04/11/17 04/12/17 04/12/17 21:59 06:00 06:00 WBC 2.8 L RBC 3.82 L Hgb 11.0 L Hct 33.9 L MCV 88.9 MCHC 32.4 RDW 16.2 H Plt Count 139 D MPV 7.6 Sodium 138 Potassium 4.0 Chloride 99 Carbon Dioxide 32 Anion Gap 7 L BUN 16 Creatinine 1.2 D Creat Clearance w eGFR > 60 Random Glucose 92 Calcium 9.1 Total Bilirubin 0.5 D AST 33 D ALT 32 Alkaline Phosphatase 87 Total Protein 8.4 H Albumin 4.2 Urine Color Jeanne Urine Appearance Slcloudy Urine pH 5.0 Ur Specific [facility] 1.025 Urine Protein Negative Urine Glucose (UA) Negative Urine Ketones Negative Urine Blood Negative Urine Nitrite Negative Urine Bilirubin Negative Urine Urobilinogen Negative Ur Leukocyte Esterase Negative RPR Titer 04/12/17 06:00 WBC RBC Hgb Hct MCV MCHC RDW Plt Count MPV Sodium Potassium Chloride Carbon Dioxide Anion Gap BUN Creatinine Creat Clearance w eGFR Random Glucose Calcium Total Bilirubin AST ALT Alkaline Phosphatase Total Protein Albumin Urine Color Urine Appearance Urine pH Ur Specific [place] Urine Protein Urine Glucose (UA) Urine Ketones Urine Blood Urine Nitrite Urine Bilirubin Urine Urobilinogen Ur Leukocyte Esterase RPR Titer Nonreactive LABS NOTED. Assessment: 04/14/17 11:59 WITHDRAWAL SYMPTOMS. Plan: CONTINUE DETOX. INCREASE PO FLUID INTAKE. PRN MOM FOR CONSTIPATION. ADVISED PATIENT TO FOLLOW-UP WITH DEVELOPMENT ARCHITECT FOR GENERAL MEDICAL ASSESSMENT AFTER DISCHARGE FROM DETOX AND FOR ABNORMAL ADMISSION CBC VALUES.
[2017-04-14] MEDS: diphenhydrAMINE HCL 50 MG CAPSULE PO PRN (22:21)
[2017-04-14] MEDS: THIAMINE HCL 100 MG TABLET (FP) PO SCH (22:21)
[2017-04-15] MEDS ORDERED: METHADONE HCL 5 MG TABLET ONE (03:12)
[2017-04-15] MEDS ORDERED: METHADONE HCL 40 MG DISPERSABLE TABLET ONE (03:12)
[2017-04-15] MEDS: METHADONE 80 MG, METHADONE 5 MG PO SCH (05:24)
[2017-04-15 06:08] VITALS: BP 93/65; PULSE 75; TEMP 99.1
[2017-04-15] MEDS ORDERED: diazePAM 5 MG TABLET PO SCH (10:00)
--- NOTE | 2017-04-15 14:28 | DS ---
[facility] Detox Discharge Summary Admission Date: 04/11/17 Discharge Date: 04/15/17 - History Present History: Sedative Dependence, MMTP Additional Comments: ADVISED PATIENT TO FOLLOW-UP WITH [employer] [employer]ORCH OPERATOR AFTER DISCHARGE FROM DETOX FOR GENERAL MEDICAL ASSESSMENT. Pertinent Past History: Hep C, Seizures, GERD, History of Positive PPD, MMTP, COPD. - Physical Exam Results Vital Signs: Vital Signs Temperature 99.1 F 04/15/17 06:07 Pulse Rate 75 04/15/17 06:07 Respiratory Rate 16 04/15/17 06:07 Blood Pressure 93/65 04/15/17 06:07 O2 Sat by Pulse Oximetry (%) Pertinent Admission Physical Exam Findings: WITHDRAWAL SYMPTOMS. - Treatment Hospital Course: Detox Protocol Followed, Detoxed Safely, Responded well, Discharged Condition Good Patient has Accepted a Rehab Referral to: NO. 12-STEP / NA OUTPATIENT PROGRAMS RECOMMENDED. - Medication Discharge Medications: Ambulatory Orders Omeprazole 20 mg PO BID 04/11/17 Vitamin E - 400 unit PO DAILY 04/11/17 - Diagnosis (1) Insomnia Status: Acute Qualifiers: Insomnia type: unspecified Qualified Code(s): G47.00 - Insomnia, unspecified (2) Methadone maintenance therapy patient Status: Chronic (3) Nicotine dependence Status: Chronic Qualifiers: Nicotine product type: cigarettes Substance use status: uncomplicated Qualified Code(s): F17.210 - Nicotine dependence, cigarettes, uncomplicated (4) Opioid dependence on agonist therapy Status: Chronic (5) Uncomplicated sedative, hypnotic or anxiolytic withdrawal Status: Acute (6) COPD (chronic obstructive pulmonary disease) Status: Chronic Qualifiers: COPD type: chronic bronchitis Chronic bronchitis type: unspecified Qualified Code(s): J42 - Unspecified chronic bronchitis (7) GERD (gastroesophageal reflux disease) Status: Chronic Qualifiers: Esophagitis presence: without esophagitis Qualified Code(s): K21.9 - Gastro-esophageal reflux disease without esophagitis (8) Hepatitis C Status: Chronic Qualifiers: Viral hepatitis chronicity: chronic Hepatic coma status: without hepatic coma Qualified Code(s): B18.2 - Chronic viral hepatitis C (9) Positive PPD, treated Status: Chronic (10) Seizure Status: Chronic - AMA Did Patient Leave Against Medical Advice: No
== END 2017-04-15 07:00 | disposition home or self-care (01) | DRG 773 ==
LOC: YASAS 11:17 → Y3N 15:20
PROVIDERS: ADMIT Internal Medicine; ATTEND Internal Medicine
PROC: HZ2ZZZZ Detoxification Services for Substance Abuse Treatment (ICD-10-PCS; principal; 2017-04-15)
DX: F11.20 Opioid dependence, uncomplicated (principal); F13.230 Sedative, hypnotic or anxiolytic dependence with withdrawal, uncomplicated; F17.210 Nicotine dependence, cigarettes, uncomplicated; G40.909 Epilepsy, unspecified, not intractable, without status epilepticus; G47.00 Insomnia, unspecified; J42 Unspecified chronic bronchitis; K21.9 Gastro-esophageal reflux disease without esophagitis; B18.2 Chronic viral hepatitis C; R76.11 Nonspecific reaction to tuberculin skin test without active tuberculosis
CPT/HCPCS: 36415; 80053; 81003; 85027; 86593; 93005; 93010

== ENCOUNTER 2018-06-08 12:36 | Inpatient (IN) | payer OTHER ==
[2018-06-08 14:42] VITALS: BMI 26.1
--- NOTE | 2018-06-08 17:35 | HP ---
CIWA Score - CIWA Score Nausea/Vomitin-No Nausea/No Vomiting Muscle Tremors: 2 Anxiety: 2 Agitation: 2 Paroxysmal Sweats: 2 Orientation: 0-Oriented Tacttile Disturbances: 1-Very Mild Itch/Numbness Auditory Disturbances: 0-None Visual Disturbances: 1-Very Mild Sensitivity Headache: 1-Very Mild CIWA-Ar Total Score: 11 Admission ROS S - HPI Chief Complaint: benzo Allergies/Adverse Reactions: Allergies Allergy/AdvReac Type Severity Reaction Status Date / Time No Known Allergies Allergy Verified 06/08/18 16:06 History of Present Illness: 62 yo male with hx of klonopin dependence is here seeking detox. MMTP: [facility] on methadone 65 mg , last medicated today, dose pending verification. PMHX: COPD, GERD, and anxiety. Denies hx of seizures or blackouts. Denies suicidal ideation or hx of suicide attempts. Longest period of sobriety 7 years. Last detox [facility] 04/11/17 -04/15/17. Exam Limitations: No Limitations - Ebola screening Have you traveled outside of the country in the last 21 days: No Have you had contact with anyone from an Ebola affected area: No Have you been sick,other than usual withdrawal symptoms: No Do you have a fever: No - Review of Systems Constitutional: Chills, Changes in sleep EENT: reports: Other (catract right eye) Respiratory: reports: No Symptoms reported Cardiac: reports: No Symptoms Reported GI: reports: Poor Fluid Intake : reports: No Symptoms Reported Musculoskeletal: reports: Back Pain Integumentary: reports: No Symptoms Reported Neuro: reports: Headache Endocrine: reports: Increased Thirst Hematology: reports: No Symptoms Reported Psychiatric: reports: Orientated x3, Anxious Other Systems: Reviewed and Negative Patient History - Patient Medical History Hx Anemia: No Hx Asthma: No Hx Chronic Obstructive Pulmonary Disease (COPD): Yes Hx Cancer: No Hx Cardiac Disorders: No Hx Congestive Heart Failure: No Hx Hypertension: No Hx Hypercholesterolemia: No Hx Pacemaker: No HX Cerebrovascular Accident: No Hx Seizures: Yes (Pt had a seizure in 2013) Hx Diabetes: No Hx Gastrointestinal Disorders: Yes (Hx of acid reflux) Hx Genitourinary Disorders: No Hx Sexually Transmitted Disorders: No Hx Renal Disease (ESRD): No Hx Thyroid Disease: No Hx Human Immunodeficiency Virus (HIV): No (2017 NEGATIVE) Hx Hepatitis C: Yes (treated ) Hx Depression: No Hx Suicide Attempt: No Hx Bipolar Disorder: No Hx Schizophrenia: No - Patient Surgical History Past Surgical History: No Hx Neurologic Surgery: No Hx Cataract Extraction: No Hx Cardiac Surgery: No Hx Lung Surgery: No Hx Breast Surgery: No Hx Breast Biopsy: No Hx Abdominal Surgery: No Hx Appendectomy: No Hx Cholecystectomy: No Hx Genitourinary Surgery: No Hx Section: No Hx Orthopedic Surgery: No Other Surgical History: Radiotherapy procedure on brain due to seizure 5 months ago. Anesthesia Reaction: No - PPD History Previous Implant?: Yes Documented Results: Positive w/o proof Implanted On Prior [facility] Admission?: No PPD to be Administered?: No - Smoking Cessation Smoking history: Current some day smoker Have you smoked in the past 12 months: Yes Aproximately how many cigarettes per day: 3 Hx Chewing Tobacco Use: No Initiated information on smoking cessation: Yes 'Breaking Loose' booklet given: 06/08/18 - Substance & Tx. History Hx Alcohol Use: Yes Hx Substance Use: Yes Substance Use Type: Tranquilizers Hx Substance Use Treatment: Yes ([facility] 04/11/17 -04/15/17) - Substances Abused Alprazolam (Xanax) Route: Oral Frequency: Daily Amount used: 4-6mg Age of first use: 60 Date of Last Use: 06/08/18 Benzodiazepine (Klonopin) Route: Oral Frequency: Daily Amount used: 6mg Age of first use: 59 Date of Last Use: 06/08/18 Family Disease History - Family Disease History Family History: Unable to Obtain Admission Physical Exam [facility] - Vital Signs Vital Signs: Vital Signs - 24 hr 06/08/18 14:35 Temperature 97.1 F L Pulse Rate 81 Respiratory 18 Rate Blood Pressure 112/70 - Physical General Appearance: Yes: Disheveled, Thin, Anxious HEENTM: Yes: EOMI, Hearing grossly Normal, Normal ENT Inspection, Normocephalic , Normal Voice, IRISH, Pharynx Normal, Tm's normal Respiratory: Yes: Chest Non-Tender, Lungs Clear, Normal Breath Sounds, No Respiratory Distress, No Accessory Muscle Use Neck: Yes: No masses,lesions,Nodules, Trachea in good position Breast: Yes: Breast Exam Deferred Cardiology: Yes: Regular Rhythm, Regular Rate Abdominal: Yes: Normal Bowel Sounds, Non Tender, Flat, Soft Genitourinary: Yes: Within Normal Limits Back: Yes: Normal Inspection Musculoskeletal: Yes: full range of Motion, Gait Steady, Pelvis Stable, Back pain Extremities: Yes: Normal Capillary Refill, Normal Inspection, Normal Range of Motion, Non-Tender Neurological: Yes: gambling broker II-XII NML intact, Fully Oriented, Alert, Motor Strength 5/5, Depressed Affect Integumentary: Yes: Normal Color, Warm, Diaphoresis Lymphatic: Yes: Within Normal Limits - Diagnostic (1) Uncomplicated sedative, hypnotic or anxiolytic withdrawal Current Visit: Yes Status: Acute (2) COPD (chronic obstructive pulmonary disease) Current Visit: Yes Status: Chronic Qualifiers: COPD type: chronic bronchitis Chronic bronchitis type: unspecified Qualified Code(s): J42 - Unspecified chronic bronchitis (3) GERD (gastroesophageal reflux disease) Current Visit: Yes Status: Chronic Qualifiers: Esophagitis presence: without esophagitis Qualified Code(s): K21.9 - Gastro -esophageal reflux disease without esophagitis (4) Nicotine dependence Current Visit: Yes Status: Chronic Qualifiers: Nicotine product type: cigarettes Substance use status: uncomplicated Qualified Code(s): F17.210 - Nicotine dependence, cigarettes, uncomplicated (5) Opioid dependence on agonist therapy Current Visit: Yes Status: Chronic Comment: [facility] MMTP on 65 mg qd last mediated today, dose pending verifications (6) Positive PPD, treated Current Visit: Yes Status: Chronic Cleared for Admission [facility] - Detox or Rehab [facility] Level of Care: Medically Supervised Detox Regimen/Protocol: Valium [facility] Breath Alcohol Content Breath Alcohol Content: 0 Urine Drug Screen - Results Drug Screen Negative: No Urine Drug Screen Results: BZO-Benzodiazepines, MTD-Methadone
[2018-06-08] MEDS ORDERED: MAGNESIUM CITRATE 300 ML BOTTLE PO PRN (17:43)
[2018-06-08] MEDS ORDERED: MENTHOL/PHENOL 1 EACH UD MM PRN (17:43)
[2018-06-08] MEDS ORDERED: diazePAM 5 MG TABLET PO ONE (17:43)
[2018-06-08] MEDS ORDERED: IBUPROFEN 400 MG TABLET (FP) PO PRN (17:43)
[2018-06-08] MEDS ORDERED: hydrOXYzine PAMOATE 50 MG CAPSULE (FP) PO PRN (17:43)
[2018-06-08] MEDS ORDERED: ACETAMINOPHEN 325 MG TABLET (FP) PO PRN (17:43)
[2018-06-08] MEDS ORDERED: LOPERAMIDE HCL 2 MG CAPSULE PO PRN (17:43)
[2018-06-08] MEDS ORDERED: P-EPHED 60MG/TRIPROLIDI 2.5MG TABLET PO PRN (17:43)
[2018-06-08] MEDS ORDERED: MAGNESIUM HYDROX 2400MG/30ML ORAL SUSPENSION 30 ML CUP PO PRN (17:43)
[2018-06-08] MEDS ORDERED: guaiFENesin/D-METHORPHAN HB 10 ML UNIT-DOSE CUPS PO PRN (17:43)
[2018-06-08] MEDS ORDERED: ALBUTEROL SO4 2.5/IPRATROPIUM 0.5 INH SOL 3 ML VIAL.NEB. NEB PRN (17:52)
[2018-06-08] MEDS: MAG HYDROX/AL HYDROX/SIMETH 30 ML UNIT-DOSE CUP PO PRN (19:13)
[2018-06-08] MEDS ORDERED: MELATONIN 5 MG TABLETS PO PRN (22:00)
[2018-06-08] MEDS: THIAMINE HCL 100 MG TABLET (FP) PO SCH (22:18)
[2018-06-08] MEDS: diazePAM 5 MG TABLET PO SCH (22:18)
[2018-06-09] MEDS: diazePAM 5 MG TABLET PO SCH ×3 (05:37→22:08)
[2018-06-09] MEDS ORDERED: METHADONE HCL 10 MG TABLET PO SCH (08:45)
[2018-06-09] MEDS: diazePAM 5 MG TABLET PO PRN (09:02)
[2018-06-09] MEDS ORDERED: METHADONE HCL 10 MG TABLET ONE (09:15)
[2018-06-09] MEDS ORDERED: METHADONE HCL 5 MG TABLET ONE (09:15)
[2018-06-09] MEDS ORDERED: METHADONE HCL 40 MG DISPERSABLE TABLET ONE (09:15)
[2018-06-09] MEDS: PANTOPRAZOLE 40 MG TABLET (FP) PO SCH (10:08)
[2018-06-09] MEDS: METHADONE 40 MG, METHADONE 20 MG, METHADONE 5 MG PO SCH (10:08)
[2018-06-09] MEDS: PRENATAL VITAMINS W/ FOLIC ACID TABLET (FP) PO SCH (10:08)
[2018-06-09 10:09] LABS: HEMATOCRIT 35.5 % (35.4-49); HEMOGLOBIN 11.6 GM/dL (11.7-16.9); MCH 28.7 pg (25.7-33.7); MCHC 32.6 g/dl (32.0-35.9); MEAN CELL VOLUME 88.1 fl (80-96); MEAN PLT VOLUME 7.9 fl (7.5-11.1); PLATELET COUNT 148 K/MM3 (134-434); RBC 4.03 M/mm3 (4.00-5.60); RDW 15.3 % (11.9-15.9); WHITE BLOOD COUNT 2.6 K/mm3 (4.0-10.0)
[2018-06-09 10:33] LABS: URINE APPEARANCE TURBID; URINE BILIRUBIN NEGATIVE (<2.0 mg/dL); URINE COLOR AMBER; URINE GLUCOSE (UA) NEGATIVE (NEGATIVE); URINE KETONE TRACE (NEGATIVE); URINE LEUK ESTERASE TRACE (NEGATIVE); URINE NITRITE NEGATIVE (NEGATIVE); URINE PROTEIN NEGATIVE (NEGATIVE)
[2018-06-09 10:36] LABS: ALBUMIN 3.4 g/dl (3.4-5.0); ANION GAP 4 (8-16); BILIRUBIN,TOTAL 0.4 mg/dL (0.2-1.0); BLOOD UREA NITROGEN 17 mg/dL (7-18); CALCIUM 8.7 mg/dL (8.5-10.1); CHLORIDE 105 mmol/L (98-107); CO2 30 mmol/L (21-32); CREATININE 1.2 mg/dL (0.7-1.3); GLUCOSE,RANDOM 94 mg/dL (74-106); POTASSIUM 4.8 mmol/L (3.5-5.1); SGOT/AST 18 U/L (15-37); SGPT/ALT 17 U/L (12-78); SODIUM 139 mmol/L (136-145); TOT PROT 7.5 g/dl (6.4-8.2)
[2018-06-09 10:37] LABS: ALK PHOS 96 U/L (45-117)
[2018-06-09 10:44] LABS: CALCIUM OXALATE CRYSTALS RARE /hpf (NONE SEEN); EPI CELLS RARE /HPF (FEW); URINE BACTERIA FEW /hpf (NONE SEEN); URINE MUCUS MANY; YEAST RARE
--- NOTE | 2018-06-09 12:15 | CONSULT ---
[facility] Psych[facility] Consult - Data Date of interview: 06/09/18 [facility] Identifying data: Fourth admission to [facility] for this 62 y/o AA male seeking detox treatment, on , for benzodiazepine and opioid dependence.Patient is ,a father of two,domiciled,unemployed and supported on Public Assistance. Substance Abuse History: Confirmed by the patient in this interview.Smoking history: Current some day smoker. Have you smoked in the past 12 months: Yes. Aproximately how many cigarettes per day: 3. Hx Chewing Tobacco Use: No. Initiated information on smoking cessation: Yes. 'Breaking Loose' booklet given : 06/08/18. - Substance & Tx. History. Hx Alcohol Use: Yes. Hx Substance Use : Yes. Substance Use Type: Tranquilizers. Hx Substance Use Treatment: Yes ( [facility] 04/11/17 -04/15/17). - Substances Abused. Alprazolam (Xanax). Route: Oral. Frequency: Daily. Amount used: 4-6mg. Age of first use: 60. Date of Last Use: 06/08/18. Benzodiazepine (Klonopin). Route: Oral. Frequency: Daily. Amount used: 6mg. Age of first use: 59. Date of Last Use: 06/08/18 Medical History: Hepatitis C,GERD,history of + PPD and seizure disorder.No known allergies. Psychiatric History: No reported history of psychiatric hospitalizations or suicide attempts.Mr Adams is currently on methadone maintenance (65 mg/day) at the [facility] MMTP program in [facility]. Physical/Sexual Abuse/Trauma History: Patient denies. Additional Comment: Urine Drug Screen Results: BZO-Benzodiazepines, MTD- Methadone.Noted. Mental Status Exam - Mental Status Exam Alert and Oriented to: Time, Place, Person Cognitive Function: Good Patient Appearance: Well Groomed Mood: Withdrawn, Irritable Affect: Mood Congruent Patient Behavior: Fatigued, Cooperative (superficially cooperatve) Speech Pattern: Clear Voice Loudness: Normal Thought Process: Intact, Goal Oriented Thought Disorder: Not Present Hallucinations: Denies Suicidal Ideation: Denies Homicidal Ideation: Denies Insight/Judgement: Poor Sleep: Well Appetite: Good Muscle strength/Tone: Normal Gait/Station: Normal Psychiatric Findings - Problem List ([place] 1, 2,3) (1) Opioid dependence on agonist therapy Current Visit: Yes Status: Acute (2) Uncomplicated sedative, hypnotic or anxiolytic withdrawal Current Visit: Yes Status: Acute (3) Nicotine dependence Current Visit: Yes Status: Acute Qualifiers: Nicotine product type: cigarettes Substance use status: uncomplicated Qualified Code(s): F17.210 - Nicotine dependence, cigarettes, uncomplicated - Initial Treatment Plan Initial Treatment Plan: Psychoeducation.Detoxification.Observation.
--- NOTE | 2018-06-09 16:10 | PN ---
S CIWA - CIWA Score Nausea/Vomitin Muscle Tremors: 2 Anxiety: 4-Mod. Anxious/Guarded Agitation: 2 Paroxysmal Sweats: No Perspiration Orientation: 0-Oriented Tacttile Disturbances: 2-Mild Itch/Numbness/Burn Auditory Disturbances: 0-None Visual Disturbances: 0-None Headache: 0-None Present CIWA-Ar Total Score: 12 BHS Progress Note (SOAP) Subjective: Stomach Cramping, Anxious, Fatigue. Objective: PATIENT A & O X 3. NO ACUTE DISTRESS. 06/09/18 16:09 Vital Signs Temperature 97.9 F 06/09/18 13:16 Pulse Rate 77 06/09/18 13:16 Respiratory Rate 18 06/09/18 13:16 Blood Pressure 106/70 06/09/18 13:16 O2 Sat by Pulse Oximetry (%) Laboratory Tests 06/09/18 06/09/18 06/09/18 08:00 08:00 08:00 WBC 2.6 L RBC 4.03 Hgb 11.6 L Hct 35.5 MCV 88.1 MCH 28.7 MCHC 32.6 RDW 15.3 Plt Count 148 MPV 7.9 Sodium 139 Potassium 4.8 Chloride 105 Carbon Dioxide 30 Anion Gap 4 L BUN 17 Creatinine 1.2 Creat Clearance w eGFR > 60 Random Glucose 94 Calcium 8.7 Total Bilirubin 0.4 AST 18 D ALT 17 D Alkaline Phosphatase 96 Total Protein 7.5 Albumin 3.4 Urine Color Urine Appearance Urine pH Ur Specific [place] Urine Protein Urine Glucose (UA) Urine Ketones Urine Blood Urine Nitrite Urine Bilirubin Urine Urobilinogen Ur Leukocyte Esterase Urine WBC (Auto) Urine RBC (Auto) Ur Epithelial Cells Calcium Oxalate Crystal Urine Bacteria Urine Mucus Urine Yeast RPR Titer HIV 1&2 Antibody Screen Negative HIV P24 Antigen Negative 06/09/18 06/09/18 08:00 08:20 WBC RBC Hgb Hct MCV MCH MCHC RDW Plt Count MPV Sodium Potassium Chloride Carbon Dioxide Anion Gap BUN Creatinine Creat Clearance w eGFR Random Glucose Calcium Total Bilirubin AST ALT Alkaline Phosphatase Total Protein Albumin Urine Color Jeanne Urine Appearance Turbid Urine pH 5.0 Ur Specific [place] 1.029 Urine Protein Negative Urine Glucose (UA) Negative Urine Ketones Trace H Urine Blood Negative Urine Nitrite Negative Urine Bilirubin Negative Urine Urobilinogen 2.0 Ur Leukocyte Esterase Trace Urine WBC (Auto) 7 Urine RBC (Auto) 1 Ur Epithelial Cells Rare Calcium Oxalate Crystal Rare Urine Bacteria Few Urine Mucus Many Urine Yeast Rare RPR Titer Nonreactive HIV 1&2 Antibody Screen HIV P24 Antigen LABS NOTED. PATIENT HAS HAD LOW WBC LEVELS ON PREVIOSU ADMISSIONS. 06/09/18 16:12 Assessment: 06/09/18 16:10 WITHDRAWAL SYMPTOMS. LEUKOPENIA. 06/09/18 16:13 Plan: CONTINUE DETOX. INCREASE DAILY PO FLUID INTAKE.
[2018-06-09] MEDS: MAG HYDROX/AL HYDROX/SIMETH 30 ML UNIT-DOSE CUP PO PRN (16:18)
[2018-06-09] MEDS: THIAMINE HCL 100 MG TABLET (FP) PO SCH (22:08)
[2018-06-10] MEDS ORDERED: METHADONE HCL 10 MG TABLET ONE (04:39)
[2018-06-10] MEDS ORDERED: METHADONE HCL 5 MG TABLET ONE (04:40)
[2018-06-10] MEDS ORDERED: METHADONE HCL 40 MG DISPERSABLE TABLET ONE (04:40)
[2018-06-10] MEDS: METHADONE 40 MG, METHADONE 20 MG, METHADONE 5 MG PO SCH (05:01)
[2018-06-10] MEDS: diazePAM 5 MG TABLET PO PRN (05:02)
[2018-06-10] MEDS: MAG HYDROX/AL HYDROX/SIMETH 30 ML UNIT-DOSE CUP PO PRN ×2 (08:24→21:04)
[2018-06-10] MEDS: PRENATAL VITAMINS W/ FOLIC ACID TABLET (FP) PO SCH (10:16)
[2018-06-10] MEDS: PANTOPRAZOLE 40 MG TABLET (FP) PO SCH (10:16)
[2018-06-10] MEDS: diazePAM 5 MG TABLET PO SCH ×2 (10:16→22:03)
--- NOTE | 2018-06-10 12:08 | PN ---
S CIWA - CIWA Score Nausea/Vomitin-No Nausea/No Vomiting Muscle Tremors: None Anxiety: 1-Mildly Anxious Agitation: 0-Normal Activity Paroxysmal Sweats: No Perspiration Orientation: 0-Oriented Tacttile Disturbances: 0-None Auditory Disturbances: 0-None Visual Disturbances: 0-None Headache: 0-None Present CIWA-Ar Total Score: 1 BHS Progress Note (SOAP) Subjective: pt states he is feeling fine. Lying in bed Objective: 06/10/18 12:06 Vital Signs - 24 hr 06/09/18 06/09/18 06/09/18 13:16 18:01 22:08 Temperature 97.9 F 98.7 F 97.9 F Pulse Rate 77 65 70 Respiratory 18 18 16 Rate Blood Pressure 106/70 115/81 104/76 06/10/18 06/10/18 06/10/18 03:30 06:07 06:30 Temperature 97.4 F L Pulse Rate 66 Respiratory 18 18 18 Rate Blood Pressure 100/59 06/10/18 09:12 Temperature 98.2 F Pulse Rate 78 Respiratory 18 Rate Blood Pressure 96/58 Laboratory Tests 06/09/18 06/09/18 06/09/18 08:00 08:00 08:00 WBC 2.6 L RBC 4.03 Hgb 11.6 L Hct 35.5 MCV 88.1 MCH 28.7 MCHC 32.6 RDW 15.3 Plt Count 148 MPV 7.9 Sodium 139 Potassium 4.8 Chloride 105 Carbon Dioxide 30 Anion Gap 4 L BUN 17 Creatinine 1.2 Creat Clearance w eGFR > 60 Random Glucose 94 Calcium 8.7 Total Bilirubin 0.4 AST 18 D ALT 17 D Alkaline Phosphatase 96 Total Protein 7.5 Albumin 3.4 Urine Color Urine Appearance Urine pH Ur Specific [place] Urine Protein Urine Glucose (UA) Urine Ketones Urine Blood Urine Nitrite Urine Bilirubin Urine Urobilinogen Ur Leukocyte Esterase Urine WBC (Auto) Urine RBC (Auto) Ur Epithelial Cells Calcium Oxalate Crystal Urine Bacteria Urine Mucus Urine Yeast RPR Titer HIV 1&2 Antibody Screen Negative HIV P24 Antigen Negative 06/09/18 06/09/18 08:00 08:20 WBC RBC Hgb Hct MCV MCH MCHC RDW Plt Count MPV Sodium Potassium Chloride Carbon Dioxide Anion Gap BUN Creatinine Creat Clearance w eGFR Random Glucose Calcium Total Bilirubin AST ALT Alkaline Phosphatase Total Protein Albumin Urine Color Jeanne Urine Appearance Turbid Urine pH 5.0 Ur Specific [place] 1.029 Urine Protein Negative Urine Glucose (UA) Negative Urine Ketones Trace H Urine Blood Negative Urine Nitrite Negative Urine Bilirubin Negative Urine Urobilinogen 2.0 Ur Leukocyte Esterase Trace Urine WBC (Auto) 7 Urine RBC (Auto) 1 Ur Epithelial Cells Rare Calcium Oxalate Crystal Rare Urine Bacteria Few Urine Mucus Many Urine Yeast Rare RPR Titer Nonreactive HIV 1&2 Antibody Screen HIV P24 Antigen mild anemia nl VS grossly nl PE Assessment: 06/10/18 12:07 62 yo male with hx of klonopin dependence is here for detox. Plan: continue [facility] detox protocol
[2018-06-10] MEDS: THIAMINE HCL 100 MG TABLET (FP) PO SCH (22:03)
[2018-06-11] MEDS ORDERED: METHADONE HCL 10 MG TABLET ONE (04:57)
[2018-06-11] MEDS ORDERED: METHADONE HCL 40 MG DISPERSABLE TABLET ONE (04:58)
[2018-06-11] MEDS ORDERED: METHADONE HCL 5 MG TABLET ONE (04:58)
[2018-06-11] MEDS: METHADONE 40 MG, METHADONE 20 MG, METHADONE 5 MG PO SCH (05:35)
[2018-06-11] MEDS: PANTOPRAZOLE 40 MG TABLET (FP) PO SCH (10:04)
[2018-06-11] MEDS: PRENATAL VITAMINS W/ FOLIC ACID TABLET (FP) PO SCH (10:04)
[2018-06-11] MEDS: diazePAM 5 MG TABLET PO SCH ×2 (10:04→22:11)
--- NOTE | 2018-06-11 11:10 | EKG ---
Test Reason : Blood Pressure : / mmHG Vent. Rate : 063 BPM Atrial Rate : 063 BPM P-R Int : 164 ms QRS Dur : 088 ms QT Int : 430 ms P-R-T Axes : 073 069 066 degrees QTc Int : 440 ms NORMAL SINUS RHYTHM POSSIBLE LEFT ATRIAL ENLARGEMENT BORDERLINE ECG WHEN COMPARED WITH ECG OF 11-APR-2017 17:04, NO SIGNIFICANT CHANGE WAS FOUND Confirmed by FLYNN BARCLAY MD ([id number]) on 06/11/2018 11:09:52 AM Referred By: Confirmed By:FLYNN BARCLAY MD
--- NOTE | 2018-06-11 11:38 | PN ---
BHS Progress Note (SOAP) Subjective: Anxious, Constipation. Objective: PATIENT A & O X 3, OBSERVED AMBULATING ON UNIT. NO ACUTE DISTRESS. 06/11/18 11:35 Vital Signs Temperature 99.1 F 06/11/18 09:34 Pulse Rate 61 06/11/18 09:34 Respiratory Rate 18 06/11/18 09:34 Blood Pressure 92/72 06/11/18 09:34 O2 Sat by Pulse Oximetry (%) Laboratory Tests 06/09/18 06/09/18 06/09/18 08:00 08:00 08:00 WBC 2.6 L RBC 4.03 Hgb 11.6 L Hct 35.5 MCV 88.1 MCH 28.7 MCHC 32.6 RDW 15.3 Plt Count 148 MPV 7.9 Sodium 139 Potassium 4.8 Chloride 105 Carbon Dioxide 30 Anion Gap 4 L BUN 17 Creatinine 1.2 Creat Clearance w eGFR > 60 Random Glucose 94 Calcium 8.7 Total Bilirubin 0.4 AST 18 D ALT 17 D Alkaline Phosphatase 96 Total Protein 7.5 Albumin 3.4 Urine Color Urine Appearance Urine pH Ur Specific [place] Urine Protein Urine Glucose (UA) Urine Ketones Urine Blood Urine Nitrite Urine Bilirubin Urine Urobilinogen Ur Leukocyte Esterase Urine WBC (Auto) Urine RBC (Auto) Ur Epithelial Cells Calcium Oxalate Crystal Urine Bacteria Urine Mucus Urine Yeast RPR Titer HIV 1&2 Antibody Screen Negative HIV P24 Antigen Negative 06/09/18 06/09/18 08:00 08:20 WBC RBC Hgb Hct MCV MCH MCHC RDW Plt Count MPV Sodium Potassium Chloride Carbon Dioxide Anion Gap BUN Creatinine Creat Clearance w eGFR Random Glucose Calcium Total Bilirubin AST ALT Alkaline Phosphatase Total Protein Albumin Urine Color Jeanne Urine Appearance Turbid Urine pH 5.0 Ur Specific [place] 1.029 Urine Protein Negative Urine Glucose (UA) Negative Urine Ketones Trace H Urine Blood Negative Urine Nitrite Negative Urine Bilirubin Negative Urine Urobilinogen 2.0 Ur Leukocyte Esterase Trace Urine WBC (Auto) 7 Urine RBC (Auto) 1 Ur Epithelial Cells Rare Calcium Oxalate Crystal Rare Urine Bacteria Few Urine Mucus Many Urine Yeast Rare RPR Titer Nonreactive HIV 1&2 Antibody Screen HIV P24 Antigen LABS NOTED. Assessment: 06/11/18 11:36 WITHDRAWAL SYMPTOMS. Plan: CONTINUE DETOX. INCREASE DAILY PO FLUID INTAKE. PRN MOM FOR CONSTIPATION. PATIENT SCHEDULED FOR D/C TOMORROW.
--- NOTE | 2018-06-11 16:59 | PN ---
S Progress Note Note: Received call from nurse re patient's low blood pressure. Patient denies any dizziness. Vital Signs (72 hours) 06/08/18 06/09/18 06/09/18 22:00 00:30 03:30 Temperature 98.8 F Pulse Rate 78 Respiratory 16 18 19 Rate Blood Pressure 127/88 06/09/18 06/09/18 06/09/18 06:13 06:30 09:59 Temperature 97.5 F L 98.6 F Pulse Rate 54 L 54 L Respiratory 18 18 18 Rate Blood Pressure 103/62 140/90 06/09/18 06/09/18 06/09/18 13:16 18:01 22:08 Temperature 97.9 F 98.7 F 97.9 F Pulse Rate 77 65 70 Respiratory 18 18 16 Rate Blood Pressure 106/70 115/81 104/76 06/10/18 06/10/18 06/10/18 03:30 06:07 06:30 Temperature 97.4 F L Pulse Rate 66 Respiratory 18 18 18 Rate Blood Pressure 100/59 06/10/18 06/10/18 06/10/18 09:12 13:20 17:56 Temperature 98.2 F 97.2 F L 97.0 F L Pulse Rate 78 72 65 Respiratory 18 18 18 Rate Blood Pressure 96/58 96/66 106/70 06/10/18 06/11/18 06/11/18 21:21 00:30 03:30 Temperature 98.5 F Pulse Rate 64 Respiratory 16 18 18 Rate Blood Pressure 111/70 06/11/18 06/11/18 06/11/18 06:00 09:34 13:39 Temperature 98 F 99.1 F 97.5 F L Pulse Rate 61 61 81 Respiratory 18 18 18 Rate Blood Pressure 100/65 92/72 105/77 Encouraged increased water intake (1 Liter/shift). Elevate feet when in bed. Notify provide of lower B/P, dizziness or syncope.
[2018-06-11] MEDS: THIAMINE HCL 100 MG TABLET (FP) PO SCH (22:11)
[2018-06-11] MEDS: MAG HYDROX/AL HYDROX/SIMETH 30 ML UNIT-DOSE CUP PO PRN (22:34)
[2018-06-12] MEDS ORDERED: METHADONE HCL 10 MG TABLET ONE (04:44)
[2018-06-12] MEDS ORDERED: METHADONE HCL 40 MG DISPERSABLE TABLET ONE (04:45)
[2018-06-12] MEDS ORDERED: METHADONE HCL 5 MG TABLET ONE (04:45)
[2018-06-12] MEDS: METHADONE 40 MG, METHADONE 20 MG, METHADONE 5 MG PO SCH (05:28)
[2018-06-12 06:07] VITALS: BP 98/62; PULSE 60; TEMP 97.5
[2018-06-12] MEDS ORDERED: diazePAM 5 MG TABLET PO SCH (10:00)
[2018-06-12] MEDS: PRENATAL VITAMINS W/ FOLIC ACID TABLET (FP) PO SCH (10:14)
[2018-06-12] MEDS: PANTOPRAZOLE 40 MG TABLET (FP) PO SCH (10:14)
--- NOTE | 2018-06-12 10:38 | PN ---
BHS Progress Note (SOAP) Subjective: DETOX COMPLETED. ALERT O X 3. NAD. PT REPORTS PMD/ PRIMARY CARE AT [facility] AND WILL FOLLOW UP AFTER DISCHARGE NEEDED. Objective: 06/12/18 10:37 Vital Signs Temperature 97.5 F L 06/12/18 06:04 Pulse Rate 60 06/12/18 06:04 Respiratory Rate 18 06/12/18 06:04 Blood Pressure 98/62 06/12/18 06:04 O2 Sat by Pulse Oximetry (%) Laboratory Tests 06/09/18 06/09/18 06/09/18 08:00 08:00 08:00 WBC 2.6 L RBC 4.03 Hgb 11.6 L Hct 35.5 MCV 88.1 MCH 28.7 MCHC 32.6 RDW 15.3 Plt Count 148 MPV 7.9 Sodium 139 Potassium 4.8 Chloride 105 Carbon Dioxide 30 Anion Gap 4 L BUN 17 Creatinine 1.2 Creat Clearance w eGFR > 60 Random Glucose 94 Calcium 8.7 Total Bilirubin 0.4 AST 18 D ALT 17 D Alkaline Phosphatase 96 Total Protein 7.5 Albumin 3.4 Urine Color Urine Appearance Urine pH Ur Specific [place] Urine Protein Urine Glucose (UA) Urine Ketones Urine Blood Urine Nitrite Urine Bilirubin Urine Urobilinogen Ur Leukocyte Esterase Urine WBC (Auto) Urine RBC (Auto) Ur Epithelial Cells Calcium Oxalate Crystal Urine Bacteria Urine Mucus Urine Yeast RPR Titer HIV 1&2 Antibody Screen Negative HIV P24 Antigen Negative 06/09/18 06/09/18 08:00 08:20 WBC RBC Hgb Hct MCV MCH MCHC RDW Plt Count MPV Sodium Potassium Chloride Carbon Dioxide Anion Gap BUN Creatinine Creat Clearance w eGFR Random Glucose Calcium Total Bilirubin AST ALT Alkaline Phosphatase Total Protein Albumin Urine Color Jeanne Urine Appearance Turbid Urine pH 5.0 Ur Specific [place] 1.029 Urine Protein Negative Urine Glucose (UA) Negative Urine Ketones Trace H Urine Blood Negative Urine Nitrite Negative Urine Bilirubin Negative Urine Urobilinogen 2.0 Ur Leukocyte Esterase Trace Urine WBC (Auto) 7 Urine RBC (Auto) 1 Ur Epithelial Cells Rare Calcium Oxalate Crystal Rare Urine Bacteria Few Urine Mucus Many Urine Yeast Rare RPR Titer Nonreactive HIV 1&2 Antibody Screen HIV P24 Antigen Assessment: 06/12/18 10:38 MEDICALLY STABLE Plan: D/C PT TODAY. F/U WITH [facility] PLANS.
--- NOTE | 2018-06-12 10:47 | DS ---
[facility] Detox Discharge Summary Admission Date: 06/08/18 Discharge Date: 06/12/18 - History Present History: Sedative Dependence, MMTP Additional Comments: DETOX COMPLETED. ALERT O X 3. PT WILL F/U WITH HIS PMD(PT DOES NOT REMEMBER NAME ON INSURANCE CARD) AT [facility]. Pertinent Past History: PLEASE SEE DX BELOW - Physical Exam Results Vital Signs: Vital Signs Temperature 97.5 F L 06/12/18 06:04 Pulse Rate 60 06/12/18 06:04 Respiratory Rate 18 06/12/18 06:04 Blood Pressure 98/62 06/12/18 06:04 O2 Sat by Pulse Oximetry (%) Pertinent Admission Physical Exam Findings: WITHDRAWAL SX Laboratory Tests 06/09/18 06/09/18 06/09/18 08:00 08:00 08:00 WBC 2.6 L RBC 4.03 Hgb 11.6 L Hct 35.5 MCV 88.1 MCH 28.7 MCHC 32.6 RDW 15.3 Plt Count 148 MPV 7.9 Sodium 139 Potassium 4.8 Chloride 105 Carbon Dioxide 30 Anion Gap 4 L BUN 17 Creatinine 1.2 Creat Clearance w eGFR > 60 Random Glucose 94 Calcium 8.7 Total Bilirubin 0.4 AST 18 D ALT 17 D Alkaline Phosphatase 96 Total Protein 7.5 Albumin 3.4 Urine Color Urine Appearance Urine pH Ur Specific [place] Urine Protein Urine Glucose (UA) Urine Ketones Urine Blood Urine Nitrite Urine Bilirubin Urine Urobilinogen Ur Leukocyte Esterase Urine WBC (Auto) Urine RBC (Auto) Ur Epithelial Cells Calcium Oxalate Crystal Urine Bacteria Urine Mucus Urine Yeast RPR Titer HIV 1&2 Antibody Screen Negative HIV P24 Antigen Negative 06/09/18 06/09/18 08:00 08:20 WBC RBC Hgb Hct MCV MCH MCHC RDW Plt Count MPV Sodium Potassium Chloride Carbon Dioxide Anion Gap BUN Creatinine Creat Clearance w eGFR Random Glucose Calcium Total Bilirubin AST ALT Alkaline Phosphatase Total Protein Albumin Urine Color Jeanne Urine Appearance Turbid Urine pH 5.0 Ur Specific [place] 1.029 Urine Protein Negative Urine Glucose (UA) Negative Urine Ketones Trace H Urine Blood Negative Urine Nitrite Negative Urine Bilirubin Negative Urine Urobilinogen 2.0 Ur Leukocyte Esterase Trace Urine WBC (Auto) 7 Urine RBC (Auto) 1 Ur Epithelial Cells Rare Calcium Oxalate Crystal Rare Urine Bacteria Few Urine Mucus Many Urine Yeast Rare RPR Titer Nonreactive HIV 1&2 Antibody Screen HIV P24 Antigen - Treatment Hospital Course: Detox Protocol Followed, Detoxed Safely, Responded well, Discharged Condition Good - Medication Discharge Medications: Ambulatory Orders Pantoprazole Sodium [Protonix -] 40 mg PO DAILY 06/08/18 - Diagnosis (1) Nicotine dependence Current Visit: Yes Status: Acute Qualifiers: Nicotine product type: cigarettes Substance use status: uncomplicated Qualified Code(s): F17.210 - Nicotine dependence, cigarettes, uncomplicated (2) Uncomplicated sedative, hypnotic or anxiolytic withdrawal Current Visit: Yes Status: Acute (3) COPD (chronic obstructive pulmonary disease) Current Visit: Yes Status: Chronic Qualifiers: COPD type: chronic bronchitis Chronic bronchitis type: unspecified Qualified Code(s): J42 - Unspecified chronic bronchitis (4) GERD (gastroesophageal reflux disease) Current Visit: Yes Status: Chronic Qualifiers: Esophagitis presence: without esophagitis Qualified Code(s): K21.9 - Gastro -esophageal reflux disease without esophagitis (5) Hepatitis C Current Visit: No Status: Chronic Qualifiers: Viral hepatitis chronicity: chronic Hepatic coma status: without hepatic coma Qualified Code(s): B18.2 - Chronic viral hepatitis C (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
== END 2018-06-12 10:52 | disposition home or self-care (01) | DRG 773 ==
LOC: YASAS 12:36 → Y3N 17:25
PROVIDERS: ADMIT Surgery; ATTEND Surgery
PROC: HZ2ZZZZ Detoxification Services for Substance Abuse Treatment (ICD-10-PCS; principal; 2018-06-08)
DX: F13.230 Sedative, hypnotic or anxiolytic dependence with withdrawal, uncomplicated (principal); F11.20 Opioid dependence, uncomplicated; F17.210 Nicotine dependence, cigarettes, uncomplicated; K21.9 Gastro-esophageal reflux disease without esophagitis; J42 Unspecified chronic bronchitis; B18.2 Chronic viral hepatitis C; R76.11 Nonspecific reaction to tuberculin skin test without active tuberculosis; Z86.69 Personal history of other diseases of the nervous system and sense organs
CPT/HCPCS: 36415; 71046-TC-FY; 80053; 81003; 81015; 85027; 86593; 87389; 93005; 93010